=== PATIENT | female | born 1940 | race African-American/Black ===

== ENCOUNTER 2022-11-20 03:07 | Emergency (ER) | payer OTHER ==
[~2022-11-20] VITALS: Ht 170.2 cm; Wt 98.0 kg
[2022-11-20 03:13] VITALS: O2SAT 99
[2022-11-20 03:40] VITALS: BP 153/90; PULSE 62; RESP 12; TEMP 98.6
[2022-11-20 04:27] LABS: BASOPHILS % 0.9 % (0.0-2.0); EOSINOPHILS % 1.5 % (0.0-5.0); HEMATOCRIT. 38.2 % (36.0-48.0); HEMOGLOBIN. 12.9 g/dL (12.0-16.0); LYMPHOCYTES % 31.5 % (20.0-50.0); MEAN CORPUSCULAR HEMOGLOBIN 29.3 pg (28.0-32.0); MEAN CORPUSCULAR HGB CONC 33.8 g/dL (31.0-37.0); MEAN CORPUSCULAR VOLUME 86.7 fL (81.0-99.0); MONOCYTES % 6.4 % (2.0-8.0); NEUTROPHILS % 59.7 % (40.0-76.0); PLATELET 329 x1000/uL (130-400); RED CELL DISTRIBUTION WIDTH 15.1 % (11.6-14.6)
[2022-11-20 04:32] LABS: CALCIUM 8.6 mg/dL (8.5-10.1); CHLORIDE 114 mEq/L (98-107); INDEX HEMOLYSI 4 (1-3); INDEX ICTERIC 1 (1-4); INDEX LIPEMIC 1 (1-3); POTASSIUM 4.2 mEq/L (3.5-5.1); SODIUM 140 mEq/L (136-145)
[2022-11-20 04:35] LABS: CARBON DIOXIDE 23 mEq/L (21-32); CREATININE 0.8 mg/dL (0.6-1.3); GLUCOSE 106 mg/dL (70-105); UREA NITROGEN BLOOD 9 mg/dL (7-21)
== END 2022-11-20 06:22 | disposition home or self-care (01) ==
LOC: ER 03:07
DX: I10 Essential (primary) hypertension (principal); E78.00 Pure hypercholesterolemia, unspecified
CPT/HCPCS: 36415; 80048; 85025; 93005; 99285